=== PATIENT | female | born 1995 | race Caucasian/White ===

== ENCOUNTER 2016-12-25 00:32 | Emergency (ER) | payer BC, OTHER ==
[~2016-12-25] VITALS: Ht 157.5 cm; Wt 58.3 kg
[~2016-12-25 00:32] MED LIST: ONDA4TAB46 PO; TRAMTAB5 PO
[2016-12-25 00:39] VITALS: TEMP 37.3; Ht 157.5 cm; Wt 58.3 kg
[2016-12-25] MEDS ORDERED: SODIUM CHLORIDE 0.9% 1000ML 1,000 ML IV STA ×2 (00:58)
[2016-12-25] MEDS ORDERED: DiphenhydrAMINE HCL 50 MG/ML VIAL IV STA (00:58)
[2016-12-25] MEDS ORDERED: METOCLOPRAMIDE HCL INJ 5 MG/ML 2 ML VIAL IV STA (00:58)
[2016-12-25] MEDS ORDERED: CEFTRIAXONE SOD INJ 2,000 MG in DEXTROSE 5% 50ML 50 ML IV STA (00:58)
[2016-12-25] MEDS ORDERED: DEXAMETHASONE SOD INJ 10 MG/ML VIAL IV ONE (01:00)
[2016-12-25 01:12] VITALS: O2SAT 99
[2016-12-25 01:18] LABS: HEMATOCRIT 35.3 % (37-47); MEAN CELL VOLUME 70.2 fL (80-100); MEAN CORPUSCULAR HEMOGLOBIN 22.1 pg (25-34); MEAN CORPUSCULAR HGB CONC 31.4 g/dl (32-36); MEAN PLATELET VOLUME 9.3 fL (7.4-10.4); PLATELET COUNT 268 K/uL (130-400); RED BLOOD COUNT 5.03 M/uL (4.2-5.4); WHITE BLOOD COUNT 12.61 K/uL (4.8-10.8)
[2016-12-25 01:29] LABS: PROTHROMBIN TIME (PATIENT) 10.7 SECONDS (9.0-12.0)
[2016-12-25 01:39] LABS: BUN/CREATININE RATIO 11.3 (10-20); CREATININE 0.77 mg/dl (0.60-1.20); POTASSIUM 3.6 mmol/L (3.5-5.1)
[2016-12-25 01:40] LABS: CALCIUM 8.7 mg/dl (8.5-10.1)
[2016-12-25] MEDS ORDERED: NAPR1TAB9 PO (01:41)
[2016-12-25 01:42] LABS: ALB/GLOB RATIO 1.2 (0.9-2)
[2016-12-25 02:01] LABS: BASO % 0.2 %; BASO ABS # 0.03 K/uL (0-0.2); COMPLETE YES; EOS % 0.2 %; IG% 0.2 %; LYMPH % 14.4 %; LYMPH ABS # 1.81 K/uL (1.2-3.4)
[2016-12-25 02:08] LABS: PREG INTERNAL NEGATIVE QC NEG CLEAR BACKGROUND; PREG INTERNAL POSITIVE QC POS CONTROL LINE
[2016-12-25 03:09] LABS: CSF APPEARANCE CLEAR; CSF COLOR COLORLESS; CSF XANTHOCHROMIC NO XANTHOCHROMIA
[2016-12-25 03:10] LABS: CSF CHEMISTRY TUBE # 2
[2016-12-25 03:18] LABS: CSF TOTAL PROTEIN 29.2 mg/dl (15.0-45.0)
--- NOTE | 2016-12-25 03:41 | EMERGENCY ROOM VISIT NOTE ---
History First contact with patient: 00:42 Chief Complaint: FEVER Stated Complaint: HIGH FEVER,MIGRAINE,DIZZINESS History of Present Illness The patient is a 21 year old female who presents to the Emergency Room with complaints of severe headache, fever, lightheadedness and confusion for the past day. Patient states she was running a fever today. She took Aleve just prior to arrival. Patient states she was confused for a brief episode today. Patient states she was also seeing things that weren't there briefly. Patient states she's feeling somewhat better now. Patient denies chest pain, dyspnea, abdominal pain, neck stiffness, sore throat, vomiting, diarrhea, earache. Other people in His are currently sick. No temperature was taken. No recent travel. Immunizations are current. Review of Systems See HPI for pertinent positives & negatives. A total of 10 systems reviewed and were otherwise negative. Past Medical/Surgical History Medical Problems: (1) Intractable headache (2) Lymphocytosis-symptomatc Family History Patient reports no known family medical history. Social History Smoking Status: Never Smoker Smokeless Tobacco Use: No Alcohol Use: occasionally Drug Use: none Marital Status: single Housing Status: lives with roommate Occupation Status: [employer] student Current/Historical Medications Scheduled PRN Naproxen (Aleve), 440 MG PO BID PRN for Pain or Fever Allergies Coded Allergies: No Known Allergies (Unverified , 12/25/16) Physical Exam Vital Signs Date Time Temp Pulse Resp B/P Pulse Ox O2 Delivery O2 Flow Rate FiO2 12/25/16 02:12 86 18 115/64 98 Room Air 12/25/16 01:12 99 Room Air 12/25/16 00:39 37.3 120 20 132/73 96 Room Air Physical Exam VITALS: Vitals are noted on the nurse's note and reviewed by myself. Vital signs tachycardic. GENERAL: Pleasant female answering questions appropriately, in no acute distress , nondiaphoretic, well-developed well-nourished. SKIN: The skin was without rashes, erythema, edema, or bruising. There is no tenting of the skin. Capillary reflex less than 2 seconds. HEAD: Normocephalic atraumatic. EARS: External auditory canals clear, tympanic membranes pearly mccauley without erythema or effusion bilaterally. EYES: Pupils equal round and reactive to light and accommodation. Conjunctivae without injection, sclerae without icterus. Extraocular movements intact. NOSE: Patent, turbinates without inflammation or discharge. No sinus tenderness. MOUTH: Mucous membranes moist. Pharynx without erythema or exudate. Uvula midline. Airway patent. Tongue does not deviate. NECK: Supple without nuchal rigidity. No lymphadenopathy. No thyromegaly. Cervical spine is nontender. No JVD. HEART: Regular rate and rhythm without murmurs gallops or rubs. LUNGS: Clear to auscultation bilaterally without wheezes, rales or rhonchi. No dullness to percussion. No retractions or accessory muscle use. ABDOMEN: Positive bowel sounds x 4. Normal tympanic percussion. Soft, nontender, without masses or organomegaly. Wren sign negative. No guarding or rebound tenderness. MUSCULOSKELETAL: No muscle atrophy, erythema, or edema noted. NEURO: Patient was alert and oriented to person place and time. Normal sensation to light and sharp touch. No focal neurological deficits. Cranial nerves II through XII grossly intact. No pronator drift. Cerebellar exam intact. Medical Decision & Procedures Laboratory Results 12/25/16 01:05 Red Blood Count 5.03, Mean Corpuscular Volume 70.2, Mean Corpuscular Hemoglobin 22.1, Mean Corpuscular Hemoglobin Concent 31.4, Mean Platelet Volume 9.3, Neutrophils (%) (Auto) 78.0, Lymphocytes (%) (Auto) 14.4, Monocytes (%) (Auto) 7.0, Eosinophils (%) (Auto) 0.2, Basophils (%) (Auto) 0.2, Neutrophils # (Auto) 9.84, Lymphocytes # (Auto) 1.81, Monocytes # (Auto) 0.88, Eosinophils # (Auto) 0.02, Basophils # (Auto) 0.03 12/25/16 01:05 Test 12/25/16 01:05 12/25/16 01:11 12/25/16 02:45 White Blood Count 12.61 K/uL (4.8-10.8) Red Blood Count 5.03 M/uL (4.2-5.4) Hemoglobin 11.1 g/dL (12.0-16.0) Hematocrit 35.3 % (37-47) Mean Corpuscular Volume 70.2 fL (80-100) Mean Corpuscular Hemoglobin 22.1 pg (25-34) Mean Corpuscular Hemoglobin Concent 31.4 g/dl (32-36) Platelet Count 268 K/uL (130-400) Mean Platelet Volume 9.3 fL (7.4-10.4) Neutrophils (%) (Auto) 78.0 % Lymphocytes (%) (Auto) 14.4 % Monocytes (%) (Auto) 7.0 % Eosinophils (%) (Auto) 0.2 % Basophils (%) (Auto) 0.2 % Neutrophils # (Auto) 9.84 K/uL (1.4-6.5) Lymphocytes # (Auto) 1.81 K/uL (1.2-3.4) Monocytes # (Auto) 0.88 K/uL (0.11-0.59) Eosinophils # (Auto) 0.02 K/uL (0-0.5) Basophils # (Auto) 0.03 K/uL (0-0.2) RDW Standard Deviation 42.6 fL (36.4-46.3) RDW Coefficient of Variation 16.6 % (11.5-14.5) Immature Granulocyte % (Auto) 0.2 % Immature Granulocyte # (Auto) 0.03 K/uL (0.00-0.02) Prothrombin Time 10.7 SECONDS (9.0-12.0) Prothromb Time International Ratio 1.0 (0.9-1.1) Activated Partial Thromboplast Time 26.7 SECONDS (21.0-31.0) Partial Thromboplastin Ratio 1.0 Anion Gap 9.0 mmol/L (3-11) Est Creatinine Clear Calc Drug Dose 90.7 ml/min Estimated GFR () 127.0 Estimated GFR (Non- 109.6 BUN/Creatinine Ratio 11.3 (10-20) Calcium Level 8.7 mg/dl (8.5-10.1) Total Bilirubin 0.5 mg/dl (0.2-1) Aspartate Amino Transf (AST/SGOT) 16 U/L (15-37) Alanine Aminotransferase (ALT/SGPT) 30 U/L (12-78) Alkaline Phosphatase 72 U/L (45-117) Total Protein 7.6 gm/dl (6.4-8.2) Albumin 4.1 gm/dl (3.4-5.0) Globulin 3.5 gm/dl (2.5-4.0) Albumin/Globulin Ratio 1.2 (0.9-2) Human Chorionic Gonadotropin, Qual NEG (NEG) Influenza Type A Antigen Neg for Influ A (NEG) Influenza Type B Antigen Neg for Influ B (NEG) Bedside Lactic Acid Venous 0.68 mmol/L (0.90-1.70) CSF Color COLORLESS CSF Appearance CLEAR CSF WBC 0 /uL (0-5) CSF RBC 0 /uL (0) CSF Xanthrochromic NO XANTHOCHROMIA CSF Cell Count Tube # 4 CSF Chemistry Tube # 2 CSF Glucose 57 mg/dl (40-70) CSF Total Protein 29.2 mg/dl (15.0-45.0) Medications Administered Medications (Trade) Dose Ordered Sig/Jeff Route Start Time Stop Time Status Last Admin Dose Admin Dexamethasone Sodium Phosphate 10 mg 10 mg NOW ONCE IV 12/25/16 01:00 12/25/16 01:02 DC 12/25/16 01:35 10 MG Sodium Chloride 1,000 ml @ 999 mls/hr Q1H1M STAT IV 12/25/16 00:58 12/25/16 01:58 DC 12/25/16 01:35 999 MLS/HR Sodium Chloride (Nss 1000ml) 1,000 ml @ 200 mls/hr Q5H STAT IV 12/25/16 00:58 12/25/16 05:57 12/25/16 01:35 200 MLS/HR Metoclopramide HCl (Reglan Inj) 10 mg NOW STAT IV 12/25/16 00:58 12/25/16 01:02 DC 12/25/16 01:35 10 MG Diphenhydramine HCl 25 mg 25 mg NOW STAT IV 12/25/16 00:58 12/25/16 01:02 DC 12/25/16 01:36 25 MG Ceftriaxone Sodium/Dextrose (Rocephin Inj/D5 50ml) 70 ml @ 100 mls/hr ONE STAT IV 12/25/16 00:58 12/25/16 01:39 DC 12/25/16 01:57 100 MLS/HR Procedure Lumbar Puncture Indication: r/o meningitis. Verbal consent was obtained after the risks and benefits were explained, including but not limited to headache, bleeding/clotting, scarring, infection, pain, and bone/joint/nerve damage. At this time, the risks of the procedure are less than the risks of NOT performing the procedure. A time out was taken and the correct patient and site identified. The patient was placed in the sitting position and the back was prepped with betadine and draped in the standard fashion. The L3 intervertebral space was identified, anesthetized locally with 1 % lidocaine without epinephrine, and the 22-gauge spinal needle was inserted through the skin with the bevel parallel to the dural fibers. The needle was carefully advanced into the lumbar cistern and 4 tubes of clear CSF was obtained. The stylet was replaced and the needle was removed. A bandaid was placed and the patient was placed in the supine position. The patient tolerated the procedure well and there were no complications. The nurse was present for the procedure. ED Course Prior records/ancillary studies reviewed. Additional history obtained from friends. Triage Nursing notes reviewed. The patient's history was concerning for headache with fever. Differential diagnosis: Etiologies such as migraine headache, meningitis, sinusitis, CO exposure, ICH, SAH, infection, tumor, headache, sinus thrombosis, arterial dissection, as well as others were entertained. Physical examination findings: As above. Non-focal. ER treatment provided: Rocephin, Decadron, Reglan, Benadryl, IV fluids On reassessment the patient felt better. Diagnostics interpreted by me: The labs revealed leukocytosis, negative rapid flu CSF with no white blood cells. Initial Gram stain negative Imaging studies: Chest x-ray with no acute consolidation or pneumothorax or free air per my interpretation CT the head was read by stat radiology with no acute hemorrhage, mass or edema. This appears to be consistent with headache with flulike illness. Patient had a sudden onset of severe headache with fever and was confused and an extensive workup for rule out meningitis. Patient was neurovascularly and neurologically intact. CSF was reviewed and negative for meningitis. Patient was counseled on lumbar puncture and verbalized understanding of this. She is advised to rest , stay well-hydrated and to follow-up health services in a few days or here in the ER sooner for spinal tap headache, high fevers, lethargy, confusion, worsening signs or symptoms or as needed. By the evaluation outlined above emergent etiologies such as meningitis, sinusitis, CO exposure, ICH, SAH, temporal arteritis, tumor, sinus thrombosis, arterial dissection, as well as others were deemed relatively unlikely. The pt informed about the findings as listed above. All questions were answered and pleased with the treatment. Return instructions were outlined and the patient was discharged in stable condition. Referral: The patient was referred back to their primary care physician for follow-up in 2 to 3 days for a recheck of the current condition. case reviewed with my Attending Medical Decision as above Impression Primary Impression: Headache Additional Impression: Fever Departure Information Dispostion Home / Self-Care Condition GOOD Referrals [facility] (PCP) Patient Instructions My [facility] Additional Instructions If you develop a headache when you sit up that resolves when you lay down that does not go away with Tylenol or Motrin then come to the ER for possible further evaluation and treatment. DO NOT drive, drink alcohol, operate machinery, or perform dangerous activities today. You were given medications in the ER that can affect your ability to safely function or operate a vehicle. Rest today in a quiet, peaceful, dark environment and get a full 8-10 hrs of sleep tonight. Avoid loud noises, smoke/smoking, alcohol, bright lights, stress, or physical exertion today to minimize the chance the headache may return. Continue current medications. Afrin nasal spray: 2-3 sprays to each nostril twice daily as needed for congestion. Do not use for more than 3-4 days because it can lead to worsening rebound congestion. Pseudoephedrine(Sudaphed): 30-60mg every 6 hours as needed for nasal congestion. Do not take this with other stimulant products or supplements. Ibuprofen(Motrin, Advil) may be used for fever or pain. Use 600mg every six hours as needed. Take with food. Avoid using more than 2400mg in a 24 hour period. Do not use 2400mg per day for more than three consecutive days without physician direction. Prolonged inappropriate use can lead to stomach upset or ulcers. (AND/OR) Acetaminophen(Tylenol) may be used for fever or pain. Use 1000mg every six hours as needed. Avoid using more than 3000mg in a 24 hour period. Return to the ER for passing out, worsening headache, vision problems, neck stiffness/pain, fevers, vomiting, worsening of your condition, or as needed. Follow up with health services in 2-3 days for a recheck of your current condition. Problem Qualifiers Primary Impression: Headache Headache type: unspecified Headache chronicity pattern: acute headache Intractability: not intractable Qualified Codes: R51 - Headache Additional Impression: Fever Fever type: unspecified Qualified Codes: R50.9 - Fever, unspecified
[2016-12-25] MEDS ORDERED: KETOROLAC TROMETHAMINE 30 MG/ML VIAL IV STA (03:47)
[2016-12-25 03:55] LABS: INFLUENZA A PCR Neg for Influ A (NEG); INFLUENZA B PCR Neg for Influ B (NEG)
[2016-12-25 04:12] VITALS: BP 133/67; PULSE 76; O2SAT 99
--- NOTE | 2016-12-25 06:43 | DIAGNOSTIC IMAGING REPORT ---
CHEST ONE VIEW PORTABLE CLINICAL HISTORY: Sepsis dyspnea COMPARISON STUDY: No previous studies for comparison. FINDINGS: The bones soft tissues and hemidiaphragms are normal. The cardiomediastinal silhouette is normal. The lungs are clear. The pulmonary vasculature is normal. IMPRESSION: Negative chest. Electronically signed by: Simba Braga M.D. 12/25/2016 6:41 AM Dictated Date/Time: 12/25/2016 6:41 AM
--- NOTE | 2016-12-25 07:09 | DIAGNOSTIC IMAGING REPORT ---
CT OF THE HEAD WITHOUT CONTRAST CLINICAL HISTORY: Fever. Severe headache. Altered mental status. COMPARISON STUDY: Head CT November 13, 2015. CT DOSE: 537.48 mGy.cm TECHNIQUE: Helical axial images of the head were obtained without IV contrast. Automated exposure control was utilized for the study. FINDINGS: No acute intracranial hemorrhage, midline shift or mass effect is present. Brain volume is normal. Ventricular system is normal. The basilar cisterns are patent. There are no extra-axial collections. Esteban-white differentiation is maintained. There are no findings to suggest acute dural sinus thrombosis or acute territorial infarct. There are no calvarial abnormalities. 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 IMPRESSION: No acute intracranial findings. Electronically signed by: Spenser Salas M.D. 12/25/2016 7:06 AM Dictated Date/Time: 12/25/2016 7:04 AM
== END 2016-12-25 04:21 | disposition home or self-care (01) ==
LOC: C.EDB 00:34
DX: R51 Headache (principal); R50.9 Fever, unspecified